=== PATIENT | female | born 1950 | race Caucasian/White ===

== ENCOUNTER 2021-07-08 11:26 | Day surgery (SDC) | payer MEDICARE ==
[~2021-07-08] VITALS: Ht 170.2 cm; Wt 128.9 kg
[~2021-07-08 11:26] MED LIST: ALEN70 PO; AMLO10 PO; ARIMIDEX1 M2 PO; Crestor40 MG PO; DICL75ER PO; HYDROCHLOROTH12.5 MG PO; VITAMIN D310 MC4 PO
--- NOTE | 2021-07-08 12:18 | NUR ---
Ambulatory in Day Surgery History, Chart, Medications and Allergies reviewed before start of procedure. Pre-Op teaching done. Pt verbalizes understanding. Patient States Post-Procedure ride home has been arranged.
--- NOTE | 2021-07-08 13:18 | NUR ---
07/08/21 1318 Cali Hannah History, Chart, Medications and Allergies reviewed before start of procedure. MONITOR INTACT WITH CONTINUOUS PULSE OXIMETRY AND INTERMITTENT BP. EKG MONITORED DURING PROCEDURE. O2 VIA POM INTACT THROUGHOUT SEDATION/PROCEDURE. See Anesthesia record/DR SOLANO.
== END 2021-07-08 23:03 | disposition home or self-care (01) ==
LOC: ORSCMMR 11:26 → ORSCSDS 13:00 → ORD 13:00 → ORSCMMR 13:00
PROVIDERS: Surgery
PROC: 0DBN8ZX Excision of Sigmoid Colon, Via Natural or Artificial Opening Endoscopic, Diagnostic (ICD-10-PCS; principal; 2021-07-08 13:00)
PROC: 0DBM8ZX Excision of Descending Colon, Via Natural or Artificial Opening Endoscopic, Diagnostic (ICD-10-PCS; principal; 2021-07-08 13:00)
DX: Z12.11 Encounter for screening for malignant neoplasm of colon (principal); Z86.010 Personal history of colon polyps; Z80.0 Family history of malignant neoplasm of digestive organs; D12.4 Benign neoplasm of descending colon; D12.5 Benign neoplasm of sigmoid colon; I10 Essential (primary) hypertension; G47.33 Obstructive sleep apnea (adult) (pediatric); E66.01 Morbid (severe) obesity due to excess calories; Z68.41 Body mass index [BMI] 40.0-44.9, adult; Z79.899 Other long term (current) drug therapy
CPT/HCPCS: 88305; J2704; J7120

== ENCOUNTER 2023-05-17 05:41 | Day surgery (SDC) | payer MEDICARE ==
[2023-05-17] VITALS (9 sets, daily range): BP systolic 135–176; BP diastolic 80–101
[~2023-05-17] VITALS: Ht 170.2 cm; Wt 122.7 kg
[~2023-05-17 05:41] MED LIST changes: +METF500 PO
[2023-05-17 07:57] LABS: Bun/Creatinine Ratio 14.2 (12.0-20.0); Calcium, Blood 8.2 mg/dL (8.5-10.1); Creatinine, Blood 0.71 mg/dL (0.40-1.00); Potassium, Blood 3.1 mmol/L (3.5-5.5)
--- NOTE | 2023-05-17 11:37 | NUR ---
Discharge instructions reviewed with patient. Patient verbalizes understanding. Copy given to patient to take home. Dressing to procedure site clean, dry, intact with no visible drainage, swelling, erythema or bruising noted. Patient States Post-Procedure ride home has been arranged. Discharged via wheelchair to private car for ride home.
== END 2023-05-17 22:54 | disposition home or self-care (01) ==
LOC: ORSCMMR 05:41 → ORD 08:15 → ORSCMMR 22:54
PROVIDERS: Surgery
PROC: 0HBU0ZX Excision of Left Breast, Open Approach, Diagnostic (ICD-10-PCS; principal; 2023-05-17 08:15)
DX: C50.912 Malignant neoplasm of unspecified site of left female breast (principal); Z17.0 Estrogen receptor positive status [ER+]; I10 Essential (primary) hypertension; G47.33 Obstructive sleep apnea (adult) (pediatric); E11.9 Type 2 diabetes mellitus without complications; E66.01 Morbid (severe) obesity due to excess calories; Z68.41 Body mass index [BMI] 40.0-44.9, adult; Z79.84 Long term (current) use of oral hypoglycemic drugs; Z79.899 Other long term (current) drug therapy
CPT/HCPCS: 80048; 82947; 88305; 88307; 93005; 93010; A9270; J1100; J2371; J2405; J2704; J3010; J7120